=== PATIENT | female | born 1930 | race Caucasian/White ===

== ENCOUNTER 2016-09-29 08:44 | Day surgery (SDC) | payer MEDICARE, BC ==
[~2016-09-29] VITALS: Ht 154.9 cm; Wt 57.7 kg
[2016-09-29] VITALS (7 sets, daily range): BP systolic 103–135; BP diastolic 60–84; PULSE 91–99; RESP 16–18; TEMP 97.9–98; O2SAT 94–97
[2016-09-29] MEDS ORDERED: ALTA10CA10 PO (09:16)
[2016-09-29] MEDS ORDERED: VITA250C3 CHEW (09:16)
[2016-09-29] MEDS ORDERED: APIX5TAB PO (09:16)
[2016-09-29] MEDS ORDERED: OCUVTAB4 PO (09:16)
[2016-09-29] MEDS ORDERED: CALCTAB PO (09:16)
[2016-09-29] MEDS ORDERED: CRANCAP2 PO (09:16)
[2016-09-29] MEDS ORDERED: BISO5TAB5 PO (09:16)
[2016-09-29] MEDS ORDERED: MULTTAB67 PO (09:16)
[2016-09-29] MEDS ORDERED: OMEGCAP PO (09:16)
[2016-09-29 09:46] LABS: AUTOMATED NEUTROPHIL # 4.4 TH/MM3 (1.8-7.7); BASOPHIL # 0.1 TH/MM3 (0-0.2); BASOPHIL % 1.8 % (0.0-2.0); EOSINOPHIL # 0.2 TH/MM3 (0-0.4); HEMATOCRIT 28.8 % (35.0-46.0); LYMPH % 18.9 % (9.0-44.0); LYMPHOCYTE # 1.2 TH/MM3 (1.0-4.8); MEAN CELL VOLUME 91.1 FL (80.0-100.0); MEAN CORPUSCULAR HEMOGLOBIN 29.3 PG (27.0-34.0); MEAN CORPUSCULAR HGB CONC 32.2 % (32.0-36.0); MONO % 6.4 % (0.0-8.0); NEUT % 69.9 % (16.0-70.0); PLATELET COUNT 177 TH/MM3 (150-450); RED BLOOD COUNT 3.16 MIL/MM3 (4.00-5.30); RED CELL DISTRIBUTION WIDTH 29.3 % (11.6-17.2); WHITE BLOOD COUNT 6.2 TH/MM3 (4.0-11.0)
[2016-09-29 09:47] LABS: HEMO FLAGS AUTO DIFF
[2016-09-29 09:55] LABS: APTT (PATIENT) 30.1 SEC (24.3-30.1); PROTHROMBIN TIME - PATIENT 11.5 SEC (9.8-11.6)
[2016-09-29] MEDS ORDERED: SODIUM CHLOR 0.9% 1000 ML IV SCH (10:00)
[2016-09-29] MEDS ORDERED: LIDOCAINE HCL 1% 20 ML VIAL ONE (10:55)
[2016-09-29] MEDS ORDERED: fentaNYL CITRATE 250 MCG/5 ML AMP ONE (11:17)
[2016-09-29] MEDS ORDERED: MIDAZOLAM HCL 2 MG/2 ML VIAL ONE (11:17)
--- NOTE | 2016-09-29 12:04 | PD.RAD ---
Post CT Procedure Prog Note Pre Procedure Diagnosis: (1) Thrombocytopenia Post Procedure Diagnosis: (1) Thrombocytopenia Procedure Date: Sep 29, 2016 Supervising Radiologist: Fletcher Pagan Estimated blood loss: <5 ml Plan of Activity Patient to Unit: [facility] Patient Condition: Good Additional Comments: left iliac bone See PACS Report for procedural detail/treatment Fletcher Pagan MD Sep 29, 2016 12:04
--- NOTE | 2016-09-29 13:01 | RADRPT ---
EXAM DATE/TIME: 09/29/2016 11:43 [facility] COMPARISON: No previous studies available for comparison. INDICATIONS : Low platelet count. SEDATION TIME: 30 minutes BIOPSY SITE: Left iliac wing MEDICATION(S): 1.) 3 mg midazolam (Versed) IV 2.) 150 mcg fentanyl (Sublimaze) IV DEVICE(S): 1.) 11 gauge Bone marrow biopsy needle MEDICAL HISTORY : Cardiovascular disease. skin cancer SURGICAL HISTORY : Hysterectomy. ENCOUNTER: Initial ACUITY: 1 day PAIN SCORE: 0/10 LOCATION: Bilateral pelvis A total of two core specimen(s) were obtained and sent to the laboratory for pathologic evaluation. PROCEDURE: 1. CT guided bone marrow biopsy. 2. Conscious sedation with continuous EKG and oximetry monitoring. 3. EKG and oximetry remained stable throughout the procedure. Prior to the procedure informed consent was obtained. Any appropriate prior imaging studies were rev iewed. Using automated exposure control and adjustment of the mA and/or kV according to patient size , radiation dose was kept as low as reasonably achievable to obtain optimal diagnostic quality images . DICOM format image data is available electronically for review and comparison. The site was prepped in a sterile fashion. Full sterile technique was used, including cap, mask, az rile gloves and gown and a large sterile sheet. Hand hygiene and 2% chlorhexidine and/or betadine/al cohol prep was utilized per protocol for cutaneous antisepsis. The skin and subcutaneous tissues wer e infiltrated with local anesthetic solution. With CT guidance the previously identified target was localized. Biopsy was performed using the presc ribed needle as above. Following biopsy marrow aspiration was performed with repeat puncture. Adequa te hemostasis was obtained with compression at the puncture site. Follow-up CT scan reveals no hemorrhage. Conscious sedation was performed with the prescribed dosages and duration as above in the presence of an independent trained radiology nurse to assist in the monitoring of the patient. EKG and oximetry remained stable throughout the procedure. The patient tolerated the procedure well and there were no complications. The patient was sent to Radiology Outpatient Unit in stable condition. CONCLUSION: 1. Uncomplicated CT guided bone marrow aspirate. 2. Uncomplicated CT guided bone marrow biopsy. Fletcher Pagan MD on September 29, 2016 at 12:59 Board Certified Radiologist. This report was verified electronically.
[2016-09-29 13:13] LABS: KERATOCYTES OCC (NORMAL); OVALOCYTES 2+ (NORMAL); TEARDROP RBCS 1+ (NORMAL)
[2016-09-29 13:14] LABS: PLATELET ESTIMATE SMEAR NORMAL (NORMAL); PLATELET MORPHOLOGY NORMAL (NORMAL); SCAN/DIFF AUTO DIFF CONFIRMED
[2016-09-29 13:20] LABS: BONE MARROW PROCESSING COMPLETE; IRON STAIN DONE; JENNER GIEMSA STAIN DONE
== END 2016-09-29 14:20 | disposition home or self-care (01) ==
LOC: HRAD 08:44 → HRIP 08:45 → HRAD 14:20
PROVIDERS: ATTEND Internal Medicine
DX: D69.6 Thrombocytopenia, unspecified (principal); I25.10 Atherosclerotic heart disease of native coronary artery without angina pectoris; Z85.828 Personal history of other malignant neoplasm of skin
CPT/HCPCS: 38221; 77012; 85025; 85097; 85610; 85730; 88184; 88185; 88237; 88264; 88280; 88305; 88311; 88313; 99152; 99153; C1830; G0364; J2250; J3010